=== PATIENT | male | born 1960 | race Caucasian/White ===

== ENCOUNTER 2018-02-06 20:45 | Emergency (ER) | payer OTHER ==
[2018-02-06 20:56] VITALS: PULSE 80
[2018-02-06] MEDS ORDERED: Sodium Chloride 0.9% 1000 ML 1,000 ML IV STA (21:29)
[2018-02-06] MEDS ORDERED: Sodium Chloride 0.9% 1000 ML 1,000 ML ONE (21:31)
--- NOTE | 2018-02-06 21:31 | ERPHSYRPT ---
- History of Present Illness Time Seen by Provider: 02/06/18 21:05 Historian: patient Exam Limitations: clinical condition Patient Subjective Stated Complaint: Diarrhea x1 week, blood in stool today. No hx of complaint Triage Nursing Assessment: Pt presents to the ED with complaints of diarrhea x1 week with blood in stool today. Pt states blood is bright red. Pt states he was seen for a tooth infection and prescribed clindamycin approximately 1 week ago. Pt states abdominal pressure, denies other complaints. No distress noted. Skin PWD. Physician History: PATIENT TREATED FOR ROOT CANAL WITH ANTIBIOTIC CLINDAMYCIN FOR 3 WEEKS AND OVER THE PAST WEEK COMPLAINS OF CRAMPY ABDOMINAL PAIN, BLOODY DIARRHEA. DENIES WEAKNESS, FEVER, OR EMESIS. Timing/Duration: week(s) Activities at Onset: none Quality: cramping Abdominal Pain Onset Location: periumbilical Pain Radiation: no radiation Severity of Pain-Max: mild Severity of Pain-Current: mild Modifying Factors: Improves With: defecating Associated Symptoms: other (BRIGHT BLOOD IN STOOL) Previous symptoms: no prior history Allergies/Adverse Reactions: No Known Drug Allergies Allergy (Unverified 02/06/18 20:56) Hx Tetanus, Diphtheria Vaccination/Date Given: Yes Hx Influenza Vaccination/Date Given: No Hx Pneumococcal Vaccination/Date Given: No Immunizations Up to Date: No - Review of Systems Constitutional: No Fever, No Chills Eyes: No Symptoms Ears, Nose, & Throat: No Symptoms Respiratory: No Cough, No Dyspnea Cardiac: No Symptoms, No Chest Pain, No Edema, No Syncope Abdominal/Gastrointestinal: Abdominal Pain, Diarrhea, Hematochezia, No Nausea, No Vomiting Genitourinary Symptoms: No Dysuria Musculoskeletal: No Symptoms, No Back Pain, No Neck Pain Skin: No Symptoms, No Rash Neurological: No Dizziness, No Focal Weakness, No Sensory Changes Psychological: No Symptoms Endocrine: No Symptoms All Other Systems: Reviewed and Negative - Past Medical History Pertinent Past Medical History: No Neurological History: No Pertinent History ENT History: No Pertinent History Cardiac History: No Pertinent History Respiratory History: No Pertinent History Endocrine Medical History: No Pertinent History Musculoskeletal History: No Pertinent History GI Medical History: No Pertinent History History: No Pertinent History Psycho-Social History: No Pertinent History Male Reproductive Disorders: No Pertinent History - Past Surgical History Past Surgical History: No Neuro Surgical History: No Pertinent History Cardiac: No Pertinent History Respiratory: No Pertinent History Gastrointestinal: No Pertinent History Genitourinary: No Pertinent History Musculoskeletal: No Pertinent History Male Surgical History: No Pertinent History - Social History Smoking Status: Former smoker Exposure to second hand smoke: No Drug Use: none Patient Lives Alone: No - Nursing Vital Signs Nursing Vital Signs: Initial Vital Signs Temperature 99.0 F 02/06/18 20:52 Pulse Rate 80 02/06/18 20:52 Respiratory Rate 16 02/06/18 20:52 Blood Pressure 152/98 02/06/18 20:52 O2 Sat by Pulse Oximetry 96 02/06/18 20:52 Pain Scale Pain Intensity 3 - Physical Exam General Appearance: no apparent distress, alert Eye Exam: PERRL/EOMI, eyes nml inspection Ears, Nose, Throat Exam: normal ENT inspection, pharynx normal, moist mucous membranes Neck Exam: normal inspection, non-tender, supple, full range of motion Respiratory Exam: normal breath sounds, lungs clear, No respiratory distress Cardiovascular Exam: regular rate/rhythm, normal heart sounds Gastrointestinal/Abdomen Exam: soft, normal bowel sounds, tenderness (MINIMAL PERIUMBILICAL TENDERNESS), No mass Rectal Exam: normal exam, normal rectal tone, other (NO BLOOD NOTED) Back Exam: normal inspection, normal range of motion, No CVA tenderness, No vertebral tenderness Extremity Exam: normal inspection, normal range of motion, pelvis stable Neurologic Exam: alert, oriented x 3, cooperative, normal mood/affect, nml cerebellar function, sensation nml, No motor deficits Skin Exam: normal color, warm, dry SpO2 Interpretation: normal SpO2: 96 Oxygen Delivery: Room Air - CT Exams Abdomen/Pelvis CT Interpretation: Tele-radiologist Report (CREEPING FAT AND MILD HYPEREMIC VASCULATURE, QUESTION MILD CHRONIC COLITIS, NO PERICOLONIC FAT STRANDING AND WALL THICKENING.) Ordered Tests: Active Orders 24 hr Category Date Time Status Clean Catch Urine Specimen STAT Care 02/06/18 21:29 Active IV Insertion STAT Care 02/06/18 21:29 Active ABDOMEN AND PELVIS W CONTRAST [CT] Stat Exams 02/06/18 22:10 Taken BLOOD CULTURE Stat Lab 02/07/18 01:03 Received CBC W DIFF Stat Lab 02/06/18 21:45 Completed CMP Stat Lab 02/06/18 21:45 Completed CULTURE,URINE Stat Lab 02/06/18 22:54 Received OCCULT BLOOD, EMESIS Stat Lab 02/06/18 21:29 Uncollected Occult Blood-Screening (Stool) [Occult Blood-Screening] Lab 02/06/18 22:00 Completed Stat UA Stat Lab 02/06/18 22:53 Completed Medication Summary Discontinued Medications Generic Name Dose Route Start Last Admin Trade Name Sonia PRN Reason Stop Dose Admin Sodium Chloride 1,000 mls @ 500 mls/hr 02/06/18 21:29 02/06/18 21:38 Sodium Chloride 0.9% 1000 Ml IV 02/06/18 23:28 500 mls/hr .Q2H STA Administration Sodium Chloride Confirm 02/06/18 21:31 Sodium Chloride 0.9% 1000 Ml Administered 02/06/18 21:32 Dose 1,000 mls @ ud .ROUTE .STK-MED ONE Levofloxacin/Dextrose 500 mg in 100 mls @ 100 mls/hr 02/07/18 00:40 02/07/18 00:47 Levofloxacin 500mg/100ml D5w IV 02/07/18 01:39 100 mls/hr STAT STA Administration Levofloxacin/Dextrose Confirm 02/07/18 00:46 Levofloxacin 500mg/100ml D5w Administered 02/07/18 00:47 Dose 500 mg in 100 mls @ ud IV .STK-MED ONE Lab/Rad Data: Laboratory Result Diagrams 02/06/18 21:45 02/06/18 21:45 Laboratory Results 02/06/18 02/06/18 02/06/18 Range/Units 22:53 22:43 22:00 WBC (4.0-10.5) K/mm3 RBC (4.1-5.6) M/mm3 Hgb (12.5-18.0) gm/dl Hct (42-50) % MCV (78-100) fl MCH (26-32) pg MCHC (32-36) g/dl RDW (11.5-14.0) % Plt Count (150-450) K/mm3 MPV (6-9.5) fl Gran % (36.0-66.0) % Eos # (Auto) (0-0.5) Absolute Lymphs (auto) (1.0-4.6) Absolute Monos (auto) (0.0-1.3) Lymphocytes % (24.0-44.0) % Monocytes % (0.0-12.0) % Eosinophils % (0.00-5.0) % Basophils % (0.0-0.4) % Absolute Granulocytes (1.4-6.9) Basophils # (0-0.4) Sodium (137-145) mmol/L Potassium (3.5-5.1) mmol/L Chloride (98-107) mmol/L Carbon Dioxide (22-30) mmol/L Anion Gap (5-15) MEQ/L BUN (9-20) mg/dL Creatinine (0.66-1.25) mg/dL Estimated GFR ML/MIN Glucose (74-106) mg/dL Calcium (8.4-10.2) mg/dL Total Bilirubin (0.2-1.3) mg/dL AST (17-59) U/L ALT (0-50) U/L Alkaline Phosphatase (38-126) U/L Serum Total Protein (6.3-8.2) g/dL Albumin (3.5-5.0) g/dL Ur Collection Type VOID Urine Color YELLOW (YELLOW) Urine Appearance CLEAR (CLEAR) Urine pH 7.0 (5-6) Ur Specific [place] 1.015 (1.005-1.025) Urine Protein NEGATIVE (Negative) Urine Ketones NEGATIVE (NEGATIVE) Urine Blood NEGATIVE (0-5) Davi/ul Urine Nitrite NEGATIVE (NEGATIVE) Urine Bilirubin NEGATIVE (NEGATIVE) Urine Urobilinogen NORMAL (0-1) mg/dL Ur Leukocyte Esterase NEGATIVE (NEGATIVE) Urine Glucose 1000 (NEGATIVE) mg/dL Stool Occult Bld Scrn NEGATIVE Stl C. diff Tox B Gene NEGATIVE (NEGATIVE) C.difficile 027-NAP1-B1 PRESUMPTIVE NEGATIVE (NEGATIVE) Specimen Received 02/06/18 2300 02/06/18 02/06/18 Range/Units 21:45 21:45 WBC 6.6 (4.0-10.5) K/mm3 RBC 4.99 (4.1-5.6) M/mm3 Hgb 14.4 (12.5-18.0) gm/dl Hct 43.3 (42-50) % MCV 86.8 (78-100) fl MCH 28.9 (26-32) pg MCHC 33.3 (32-36) g/dl RDW 12.9 (11.5-14.0) % Plt Count 187 (150-450) K/mm3 MPV 10.3 H (6-9.5) fl Gran % 72.8 H (36.0-66.0) % Eos # (Auto) 0.12 (0-0.5) Absolute Lymphs (auto) 1.22 (1.0-4.6) Absolute Monos (auto) 0.41 (0.0-1.3) Lymphocytes % 18.6 L (24.0-44.0) % Monocytes % 6.3 (0.0-12.0) % Eosinophils % 1.8 (0.00-5.0) % Basophils % 0.5 (0.0-0.4) % Absolute Granulocytes 4.77 (1.4-6.9) Basophils # 0.03 (0-0.4) Sodium 141 (137-145) mmol/L Potassium 3.7 (3.5-5.1) mmol/L Chloride 102 (98-107) mmol/L Carbon Dioxide 32 H (22-30) mmol/L Anion Gap 11.0 (5-15) MEQ/L BUN 18 (9-20) mg/dL Creatinine 1.10 (0.66-1.25) mg/dL Estimated GFR > 60.0 ML/MIN Glucose 173 H (74-106) mg/dL Calcium 9.6 (8.4-10.2) mg/dL Total Bilirubin 0.50 (0.2-1.3) mg/dL AST 24 (17-59) U/L ALT 30 (0-50) U/L Alkaline Phosphatase 80 (38-126) U/L Serum Total Protein 6.8 (6.3-8.2) g/dL Albumin 4.0 (3.5-5.0) g/dL Ur Collection Type Urine Color (YELLOW) Urine Appearance (CLEAR) Urine pH (5-6) Ur Specific [place] (1.005-1.025) Urine Protein (Negative) Urine Ketones (NEGATIVE) Urine Blood (0-5) Davi/ul Urine Nitrite (NEGATIVE) Urine Bilirubin (NEGATIVE) Urine Urobilinogen (0-1) mg/dL Ur Leukocyte Esterase (NEGATIVE) Urine Glucose (NEGATIVE) mg/dL Stool Occult Bld Scrn Stl C. diff Tox B Gene (NEGATIVE) C.difficile 027-NAP1-B1 (NEGATIVE) Specimen Received - Progress Progress: improved Progress Note: 02/07/18 02:07 IV NORMAL SALINE 500ML/HR, AFTER 2 SET BLOOD CULTURES , LEVAQUIN 500MG IVPB. Counseled pt/family regarding: lab results, diagnosis, need for follow-up, rad results - Departure Time of Disposition: 02:14 Departure Disposition: Home Clinical Impression: EARLY COLITIS Condition: Stable Critical Care Time: No Additional Instructions: BEGIN ANTIBIOTIC LEVAQUIN 500MG DAILY FOR 10 DAYS. NORCO 5/325 EVERY 4 HOURS FOR PAIN. BEGIN A CLEAR LIQUID DIET FOR 24 HOURS FOLLOWED BY A FULL LIQUID DIET DAY #2 CONSIST OF TOAST, SOUP, JELLO, CRACKERS AND CHEESES, THEN DAY #3 BEGIN A REGULAR DIET. Prescriptions: Hydrocodone/Acetaminophen [[place]fur 5-325 Tablet] 1 each PO Q6H PRN PRN #12 tablet MDD 4 PRN Reason: Pain Levofloxacin [Levaquin] 500 mg PO DAILY #10 tablet
[2018-02-06 21:53] LABS: BASOPHIL % 0.5 % (0.0-0.4); Basophil (Absolute #) 0.03 (0-0.4); Eosinophil % 1.8 % (0.00-5.0); Eosinophil (Absolute #) 0.12 (0-0.5); Granulocyte Absolute (ANC) 4.77 (1.4-6.9); Granulocytes % 72.8 % (36.0-66.0); Hematocrit 43.3 % (42-50); Hemoglobin 14.4 gm/dl (12.5-18.0); Lymphocyte (Absolute #) 1.22 (1.0-4.6); Lymphocytes % 18.6 % (24.0-44.0); Mean Cell Volume 86.8 fl (78-100); Mean Corpuscular Hemoglobin 28.9 pg (26-32); Mean Corpuscular Hgb Concent. 33.3 g/dl (32-36); Mean Platelet Volume 10.3 fl (6-9.5); Monocyte (Absolute #) 0.41 (0.0-1.3); Monocytes % 6.3 % (0.0-12.0); Platelet Count 187 K/mm3 (150-450); Red Blood Count 4.99 M/mm3 (4.1-5.6); Red Cell Distribution Width 12.9 % (11.5-14.0); White Blood Count 6.6 K/mm3 (4.0-10.5)
[2018-02-06 22:05] LABS: ALKALINE PHOSPHATASE 80 U/L (38-126); BLOOD UREA NITROGEN 18 mg/dL (9-20); CHLORIDE 102 mmol/L (98-107); Calcium 9.6 mg/dL (8.4-10.2); Carbon Dioxide 32 mmol/L (22-30); Glucose 173 mg/dL (74-106); Potassium 3.7 mmol/L (3.5-5.1); SGOT/AST 24 U/L (17-59); SGPT/ALT 30 U/L (0-50); SODIUM 141 mmol/L (137-145); Total Protein 6.8 g/dL (6.3-8.2)
[2018-02-06 22:44] VITALS: BP 142/75
[2018-02-06 23:19] LABS: Appearance CLEAR (CLEAR); Bilirubin NEGATIVE (NEGATIVE); Blood NEGATIVE Ery/ul (0-5); Glucose 1000 mg/dL (NEGATIVE); Ketones NEGATIVE (NEGATIVE); Leukocyte Esterase NEGATIVE (NEGATIVE); Nitrite NEGATIVE (NEGATIVE); Protein,Urine Dip NEGATIVE (Negative); Specific Gravity 1.015 (1.005-1.025); Urobilinogen NORMAL mg/dL (0-1)
[2018-02-06 23:34] LABS: 027 TOX PROD PRESUMPTIVE NEGATIVE (NEGATIVE); TOXIGENIC C. DIFF ORG NEGATIVE (NEGATIVE)
[2018-02-07] MEDS ORDERED: Levofloxacin 500MG/100ML D5W 500 MG/100 ML BAG IV STA (00:40)
[2018-02-07] MEDS ORDERED: Levofloxacin 500MG/100ML D5W 500 MG/100 ML BAG IV ONE (00:46)
[2018-02-07 02:10] VITALS: O2SAT 96
--- NOTE | 2018-02-07 09:06 | XRAY ---
Indication: Lower abdominal pain and bloody diarrhea. Multiple contiguous axial images obtained through the abdomen and pelvis using 80 cc Isovue 370 contrast only. Comparison: None. Lung bases demonstrates minimal bibasilar dependent atelectasis. Heart is not enlarged. A few right infrahilar calcified nodes. Small hiatal hernia. Stomach is distended with food/fluid. Noncontrasted bowel loops appear nonobstructed. Normal appendix and ileocecal junction. Mild scattered sigmoid diverticulosis. Sigmoid also demonstrates mild wall thickening with very minimal pericolonic stranding, possible colitis/diverticulitis. No free fluid/air. Calcified splenic granulomas. Gallbladder partially contracted without gallstones or abnormal biliary distention. Remaining liver, pancreas, adrenal glands, kidneys, ureters, and bladder appear unremarkable. Minimal aortoiliac calcifications. No AAA or pathologic retroperitoneal lymphadenopathy. Osseous structures intact with mild multilevel degenerative spondylosis. Small fatty left inguinal hernia. Impression: 1. Sigmoid diverticulosis with minimal wall thickening and minimal stranding. Rule out mild colitis/diverticulitis. 2. Small fatty left inguinal hernia and small hiatal hernia. Comment: Preliminary interpretation was made by [facility] who reports cholecystectomy. Gallbladder is present and appears contracted. CT DI 60.68
== END 2018-02-07 02:22 | disposition home or self-care (01) ==
LOC: ED 20:45
DX: K52.9 Noninfective gastroenteritis and colitis, unspecified (principal)
CPT/HCPCS: 36000; 36415; 74177; 80053; 81002; 82270; 85025; 87040; 87086; 87493; 96360; 96361; 96365; 99283; 99284; J1956